=== PATIENT | male | born 1970 | race Caucasian/White ===

== ENCOUNTER 2018-08-28 15:26 | Outpatient (CLI) | payer OTHER ==
--- NOTE | 2018-08-28 19:03 | RAD ---
CHEST 08/28/18 PA and lateral views are compared with a 06/07/03 study. There has been no adverse interval change. The heart is normal in size and the lungs are clear. No in filtrate or effusion was seen. No pleural plaques or calcifications were noted. The bony structures a ppear normal and the mediastinum was unremarkable. IMPRESSION: No acute finding. POS: HOME
== END 2018-08-28 15:27 | disposition home or self-care (01) ==
LOC: BURRAD 15:26
PROVIDERS: ATTEND Family Medicine
DX: J40 Bronchitis, not specified as acute or chronic (principal); Z77.090 Contact with and (suspected) exposure to asbestos
CPT/HCPCS: 71046

== ENCOUNTER 2019-03-29 11:15 | Emergency (ER) | payer OTHER ==
[2019-03-29 12:16] LABS: ALT (SGPT) 42 U/L (8-55); Albumin 4.2 g/dL (3.5-5.0); Alkaline Phosphatase 89 U/L (40-110); Anion Gap 15 mmol/L (10-20); BUN (Urea Nitrogen) 12 mg/dL (8.9-20.6); Bilirubin, Total 0.4 mg/dL (0.2-1.2); Calc. Creatinine Clearance 0 mL/min (70-130); Calcium 9.9 mg/dL (7.8-10.44); Carbon Dioxide 24 mmol/L (22-29); Chloride 105 mmol/L (98-107); Estimated GFR-MDRD 90; Globulin 2.9 g/dL (2.4-3.5); Glucose 88 mg/dL (70-105); Potassium 4.6 mmol/L (3.5-5.1); Protein, Total 7.1 g/dL (6.0-8.3); Sodium 139 mmol/L (136-145)
[2019-03-29 12:24] LABS: Eosinophils 3 % (0-10); Hemoglobin 15.9 g/dL (14.0-18.0); Lymphocytes 20 % (21-51); MDiff Complete? YES; Mean Corpuscular HGB CONC 31.7 g/dL (32.0-36.0); Mean Corpuscular Hemoglobin 28.7 pg (27.0-31.0); Mean Corpuscular Volume 90.3 fL (78.0-98.0); Mean Platelet Volume 8.3 fL (7.4-10.4); Monocytes 3 % (0-10); Neutrophil 74 % (42-75); Platelet Count 250 thou/uL (130-400); RBC Distribution Width 12.3 % (11.5-14.5); Red Blood Cell (RBC) Count 5.54 mill/uL (4.70-6.10); White Blood Cell (WBC) Count 10.9 thou/uL (4.8-10.8)
[2019-03-29 12:26] LABS: AST (SGOT) 28 U/L (5-34)
[2019-03-29] MEDS ORDERED: Lisinopril 20 MG TAB ONE (12:42)
--- NOTE | 2019-03-29 14:32 | RAD ---
AP PORTABLE CHEST: 03/29/2019 1156 HOURS COMPARISON: 08/28/2018 FINDINGS: The heart remains normal in size and the lungs are clear. There is no vascular congestion, edema or p leural effusion. The trachea is midline. IMPRESSION: No acute thoracic findings. POS: HOME
== END 2019-03-29 12:53 | disposition home or self-care (01) ==
LOC: BURERS 11:15
DX: I10 Essential (primary) hypertension (principal); F17.210 Nicotine dependence, cigarettes, uncomplicated; E03.9 Hypothyroidism, unspecified; E78.5 Hyperlipidemia, unspecified; F41.9 Anxiety disorder, unspecified; Z79.899 Other long term (current) drug therapy
CPT/HCPCS: 36415; 71045; 80053; 84443; 84484; 85025

== ENCOUNTER 2019-11-25 08:34 | Emergency (ER) | payer BC, OTHER ==
[2019-11-25 09:00] LABS: #Basophils 0.2 thou/uL (0.0-0.2); #Eosinphils 0.5 thou/uL (0.0-0.7); #Lymphocytes 3.2 thou/uL (1.20-3.40); #Monocytes 0.6 thou/uL (0.11-0.59); #Neutrophils 10.5 thou/uL (1.40-6.50); %Basophils 1.1 % (0.0-1.0); %Eosinophils 3.3 % (0.0-10.0); %Lymphocytes 21.6 % (21.0-51.0); %Monocytes 3.9 % (0.0-10.0); %Neutrophils 70.1 % (42.0-75.0); Hemoglobin 14.5 g/dL (14.0-18.0); Mean Corpuscular HGB CONC 31.5 g/dL (32.0-36.0); Mean Corpuscular Hemoglobin 29.6 pg (27.0-31.0); Mean Platelet Volume 8.1 fL (7.4-10.4); Platelet Count 240 thou/uL (130-400); RBC Distribution Width 12.1 % (11.5-14.5)
[2019-11-25] MEDS ORDERED: Aspirin Chewable 81 MG TAB ONE (09:07)
[2019-11-25] MEDS ORDERED: Ketorolac Tromethamine 30 MG/ML VIAL ONE (09:07)
[2019-11-25 09:18] LABS: Anion Gap 15 mmol/L (10-20); BUN (Urea Nitrogen) 16 mg/dL (8.4-25.7); Calc. Creatinine Clearance 0 mL/min (70-130); Carbon Dioxide 27 mmol/L (22-29); Chloride 103 mmol/L (98-107); Estimated GFR-MDRD 71; Potassium 3.6 mmol/L (3.5-5.1); Sodium 141 mmol/L (136-145)
[2019-11-25 09:19] LABS: ALT (SGPT) 31 U/L (8-55); AST (SGOT) 17 U/L (5-34); Albumin 4.2 g/dL (3.5-5.0); Alkaline Phosphatase 96 U/L (40-110); Bilirubin, Total 0.4 mg/dL (0.2-1.2); Calcium 9.7 mg/dL (7.8-10.44); Globulin 2.3 g/dL (2.4-3.5); Glucose 111 mg/dL (70-105); Lipase 58 U/L (8-78); Protein, Total 6.5 g/dL (6.0-8.3)
[2019-11-25] MEDS ORDERED: Cyclobenzaprine 10 MG TAB ONE (09:47)
--- NOTE | 2019-11-25 14:09 | RAD ---
PORTABLE CHEST: 11/25/19 An AP portable film at 0903 is compared with a 03/29/19 study. The depth of inspiration is slightly shallow. Some very minor haziness over the left hemidiaphragm is probably atelectasis due to the incomplete breath. I do not see any vascular congestion, edema, or l obar pulmonary infiltrate. The heart size is normal. IMPRESSION: Shallow breath but no definite acute findings of concern. POS: HOME
== END 2019-11-25 10:02 | disposition home or self-care (01) ==
LOC: BURERS 08:34
DX: R07.9 Chest pain, unspecified (principal); E78.5 Hyperlipidemia, unspecified; I10 Essential (primary) hypertension; E03.9 Hypothyroidism, unspecified; F41.9 Anxiety disorder, unspecified; F17.210 Nicotine dependence, cigarettes, uncomplicated; Z79.899 Other long term (current) drug therapy
CPT/HCPCS: 36415; 71045; 80053; 83690; 84484; 85025; 85379; 93005; 94760; 96374; 99406; J1885

== ENCOUNTER 2024-05-07 09:15 | Outpatient (CLI) | payer BC | END 2024-05-07 09:16 | disposition home or self-care (01) | LOC: BURRAD 09:15 | PROVIDERS: ATTEND Family Medicine | DX: M54.2 Cervicalgia (principal); M47.812 Spondylosis without myelopathy or radiculopathy, cervical region | CPT/HCPCS: 72040 ==